=== PATIENT | female | born 1965 | race Two or more races ===

== ENCOUNTER 2024-09-03 18:10 | Emergency (ER) | payer OTHER ==
[~2024-09-03] VITALS: Ht 167.6 cm; Wt 77.1 kg
[2024-09-03] MEDS ORDERED: NIFEDIPINE20 MG PO (19:35)
[2024-09-03] MEDS ORDERED: EFFEXOR XR150 MG PO (19:35)
[2024-09-03] MEDS ORDERED: KETOROLAC TROMETHAMINE 30 MG VIAL IV STA (21:44)
[2024-09-03] MEDS ORDERED: TRAMADOL HCL 50 MG TABLET PO STA (21:45)
[2024-09-03 22:34] LABS: BASO % 0.5 % (0.1-1.2); EOS # 0.00 (0.04-0.54); EOS % 0.0 % (0.7-7.0); LYMPH # 0.77 (1.18-3.74); LYMPH % 9.4 % (19.3-53.1); MEAN PLATELET VOLUME 9.80 fl (9.4-12.4); MONO # 0.44 (0.24-0.82); MONO % 5.4 % (4.7-12.5); NEUT # 6.89 (1.56-6.13); NEUT % 84.3 % (34.0-71.1); RED CELL DISTRIBUTION WIDTH 13.8 % (11.6-14.4)
[2024-09-03 22:57] LABS: ALT/SGPT 26.0 U/L (12-78); AST/SGOT 18.0 U/L (15-37); BILIRUBIN TOTAL 0.4 mg/dL (0.3-1.2); BUN CREA RATIO 13.0 (7.0-25.0); CREATININE SERUM 0.83 mg/dL (0.55-1.02); GFR 70.12; GLOBULINA 4.4 G/DL (2.4-3.5); GLUCOSE FASTING 111.0 mg/dL (65-100); OSMOLALITY SERUM 276.0 MOSM/KG (275-295)
[2024-09-03 23:10] LABS: INR 1.0
[2024-09-04 00:15] LABS: URINE APPEARANCE Clear; URINE BILIRRUBIN Negative (NEGATIVE); URINE BLOOD Negative; URINE COLOR Yellow; URINE GLUCOSE Negative (NEGATIVE); URINE KETONE Trace (NEGATIVE); URINE LEUKOCYTE Negative; URINE NITRATE Negative; URINE PROTEIN Negative (NEGATIVE); URINE UROBILINOGEN 0.2 E.U./dl
[2024-09-04 00:18] LABS: URINE BACTERIA 11.9 uL (0.0-1933); URINE EPITHELIAL CELLS 2.2 uL (0.0-38.8); URINE RBC 4.8 uL (0.0-20.8); URINE WBC 2.7 uL (0.0-23.2)
[2024-09-04 00:19] LABS: URINE CAST 0.43 uL (0.0-1.40)
== END 2024-09-04 01:02 | disposition home or self-care (01) ==
LOC: ER 18:30
DX: R10.32 Left lower quadrant pain (principal); S40.012A Contusion of left shoulder, initial encounter; S50.02XA Contusion of left elbow, initial encounter; S80.02XA Contusion of left knee, initial encounter; W18.39XA Other fall on same level, initial encounter; Y93.89 Activity, other specified; Y92.832 Beach as the place of occurrence of the external cause